=== PATIENT | female | born 1950 | race Two or more races ===

== ENCOUNTER → 2019-07-14 | Outpatient (CLI) | payer MEDICARE | END | disposition home or self-care (01) | LOC: MSC 12:10 | PROVIDERS: ATTEND Anesthesiology | DX: M54.16 Radiculopathy, lumbar region (principal); M40.299 Other kyphosis, site unspecified; M62.830 Muscle spasm of back; M25.562 Pain in left knee; M25.561 Pain in right knee; Z79.891 Long term (current) use of opiate analgesic; Z79.1 Long term (current) use of non-steroidal anti-inflammatories (NSAID) ==

== ENCOUNTER → 2020-03-15 | Outpatient (CLI) | payer MEDICARE | END | disposition home or self-care (01) | LOC: MSC 10:15 | PROVIDERS: ATTEND Anesthesiology | DX: M54.16 Radiculopathy, lumbar region (principal); M40.299 Other kyphosis, site unspecified; M62.830 Muscle spasm of back; M25.562 Pain in left knee; M25.561 Pain in right knee; M19.90 Unspecified osteoarthritis, unspecified site; I10 Essential (primary) hypertension; Z79.891 Long term (current) use of opiate analgesic; Z79.1 Long term (current) use of non-steroidal anti-inflammatories (NSAID) ==